=== PATIENT | male | born 1960 | race Caucasian/White ===

== ENCOUNTER 2022-07-24 14:33 | Observation (INO) | payer OTHER ==
[2022-07-24 15:34] LABS: #Eosinphils 0.1 thou/uL (0.0-0.7); #Lymphocytes 1.3 thou/uL (1.20-3.40); #Monocytes 0.7 thou/uL (0.11-0.59); #Neutrophils 7.5 thou/uL (1.40-6.50); %Basophils 0.3 % (0.0-1.0); %Eosinophils 1.2 % (0.0-10.0); %Lymphocytes 13.5 % (21.0-51.0); %Monocytes 7.3 % (0.0-10.0); %Neutrophils 77.7 % (42.0-75.0); Hemoglobin 15.3 g/dL (14.0-18.0); Mean Corpuscular HGB CONC 32.6 g/dL (32.0-36.0); Mean Corpuscular Hemoglobin 30.4 pg (27.0-31.0); Mean Corpuscular Volume 93.5 fL (78.0-98.0); Mean Platelet Volume 8.8 fL (7.4-10.4); Platelet Count 154 thou/uL (130-400); RBC Distribution Width 14.8 % (11.5-14.5); Red Blood Cell (RBC) Count 5.02 mill/uL (4.70-6.10); White Blood Cell (WBC) Count 9.7 thou/uL (4.8-10.8)
[2022-07-24 15:54] LABS: ALT (SGPT) 17 U/L (8-55); AST (SGOT) 17 U/L (5-34); Albumin 3.9 g/dL (3.4-4.8); Alkaline Phosphatase 62 U/L (40-110); Anion Gap 18 mmol/L (10-20); BUN (Urea Nitrogen) 14 mg/dL (8.4-25.7); Bilirubin, Total 0.9 mg/dL (0.2-1.2); Calc. Creatinine Clearance 0 mL/min (70-130); Calcium 8.9 mg/dL (7.8-10.44); Carbon Dioxide 23 mmol/L (23-31); Chloride 101 mmol/L (98-107); Estimated GFR 98; Globulin 3.1 g/dL (2.4-3.5); Glucose 120 mg/dL (80-115); Potassium 3.5 mmol/L (3.5-5.1); Sodium 138 mmol/L (136-145)
[2022-07-24] MEDS ORDERED: Furosemide 40 MG/4 ML VIAL SLOW IVP SCH (18:00)
[2022-07-24 18:21] LABS: Troponin I Less than 0.010 ng/mL (< 0.028)
[2022-07-24] MEDS ORDERED: Nitroglycerin 0.4 MG TAB (25 Tab Bottle) SL PRN (19:43)
[2022-07-24] MEDS ORDERED: Dextrose 5% in Water 1,000 ML IV PRN (19:43)
[2022-07-24] MEDS ORDERED: Dextrose 50% Abboject 50 ML SYRINGE SLOW IVP PRN (19:43)
[2022-07-24] MEDS ORDERED: HumaLOG 300 UNITS/3 ML VIAL SC PRN (19:43)
[2022-07-24] MEDS ORDERED: Ondansetron ODT 4 MG TAB SL PRN (19:45)
[2022-07-24] MEDS ORDERED: Ondansetron PF 4 MG/2 ML Vial IVP PRN (19:45)
[2022-07-24] MEDS ORDERED: Acetaminophen 325 MG TAB PO PRN (19:45)
[2022-07-24 19:53] VITALS: BMI 27.9
[2022-07-24] MEDS ORDERED: methylPREDNISolone Sod Succ 40 MG VIAL IVP SCH (20:00)
[2022-07-24] MEDS: Sodium Chloride 0.9% 1,000 ML IV SCH (20:24)
[2022-07-24] MEDS ORDERED: rOPINIRole HCl 2 MG TAB PO SCH (21:00)
[2022-07-24 21:44] LABS: Troponin I Less than 0.010 ng/mL (< 0.028)
[2022-07-24] MEDS: methylPREDNISolone Sod Succ 40 MG VIAL IVP SCH (23:57)
[2022-07-25] MEDS: Sodium Chloride 0.9% 1,000 ML IV SCH (03:03)
[2022-07-25] MEDS: methylPREDNISolone Sod Succ 40 MG VIAL IVP SCH ×2 (06:40→12:03)
[2022-07-25 07:31] VITALS: TEMP 97.6
[2022-07-25] MEDS ORDERED: Aspirin 325 mg Enteric Coated Tablet PO SCH (09:00)
[2022-07-25] MEDS ORDERED: Venlafaxine 75 MG TAB PO SCH (09:00)
[2022-07-25] MEDS ORDERED: Nicotine 21 MG PATCH TD SCH (09:00)
[2022-07-25 11:27] VITALS: BP 137/63
[2022-07-25] MEDS: metFORMIN 500 MG TAB PO SCH ×2 (12:02→16:20)
== END 2022-07-25 17:00 | disposition home or self-care (01) ==
LOC: ERS 14:33 → 2SW 17:31
PROVIDERS: ADMIT Internal Medicine; ATTEND Internal Medicine
DX: R07.9 Chest pain, unspecified (principal); J44.9 Chronic obstructive pulmonary disease, unspecified; G25.81 Restless legs syndrome; E11.9 Type 2 diabetes mellitus without complications; F17.210 Nicotine dependence, cigarettes, uncomplicated; G47.33 Obstructive sleep apnea (adult) (pediatric); Z20.822 Contact with and (suspected) exposure to COVID-19; Z79.84 Long term (current) use of oral hypoglycemic drugs; Z79.899 Other long term (current) drug therapy
CPT/HCPCS: 36415; 36416; 71045; 78452; 80053; 83880; 84484; 85025; 93005; 93017; 94640; 94760; 96374; 96375; 96376; A9500; G0378; J1940; J2920; J7050; J7620; U0003; U0005